=== PATIENT | male | born 1990 | race Caucasian/White ===

== ENCOUNTER 2023-06-03 18:40 | Outpatient (CLI) | payer SELFPAY ==
[2023-06-04 08:41] LABS: HBs Antibody, Quant 174.4 mIU/mL (See Note); Hepatitis B Surface Ab Positive (See Note)
[2023-06-04 10:14] LABS: Varicella IgG Antibody Positive (See Note)
[2023-06-07 12:35] LABS: TB Interpretation Negative (Negative); TB2 Ag minus Nil 0.02 IU/mL
== END 2023-06-03 18:41 | disposition home or self-care (01) ==
LOC: LBO 06-12 18:40
PROVIDERS: Visit Provider Nurse Practitioner Family
DX: Z02.1 Encounter for pre-employment examination (principal)
CPT/HCPCS: 36415; 86706; 86787; 86480